=== PATIENT | female | born 1960 | race Caucasian/White ===

== ENCOUNTER 2017-11-21 18:14 | Inpatient (IN) | payer SELFPAY ==
[2017-11-21] MEDS ORDERED: METHYLPREDNISOLONE 125 MG INJ ONE (18:42)
[2017-11-21] MEDS ORDERED: NA CHLORIDE 0.9% 1,000 ML ONE (18:42)
[2017-11-21] MEDS ORDERED: ACETAMINOPHEN 325 MG TABLET ONE (18:42)
[2017-11-21] MEDS ORDERED: Levofloxacin 750mg IV 750 MG/150 ML BAG IV ONE (18:42)
--- NOTE | 2017-11-21 18:53 | EDPHYS ---
Physician Documentation [facility] Name: Mildred Renner Age: 57 yrs Sex: Female : 1960 Arrival Date: 11/21/2017 Time: 18:16 Bed 5 Private MD: None, None ED Physician Chauncey Galeas HPI: 11/21 18:47 This 57 yrs old Female presents to ER via Ambulatory with complaints of jorje Breathing Difficulty, Cough. 18:47 The patient has shortness of breath at rest, with light activity. Onset: The jorje symptoms/episode began/occurred 3 day(s) ago. Duration: The symptoms are continuous, and are steadily getting worse. The patient's shortness of breath is aggravated by coughing, is alleviated by pursed lip breathing, sitting up, application of supplemental oxygen. Associated signs and symptoms: Pertinent positives: non-productive cough, fever. The patient has experienced similar episodes in the past, several times. Historical: - Allergies: 18:23 PENICILLINS; aj - Home Meds: 18:23 None [Active]; aj - PMHx: 18:23 COPD; Hypertension; Pancreatitis; aj - PSHx: 18:23 Cholecystectomy; aj - Immunization history:: Adult Immunizations up to date. - Social history:: Smoking status: Patient uses tobacco products, smokes one-half pack cigarettes per day. - Ebola Screening: : Patient negative for fever greater than or equal to 101.5 degrees Fahrenheit, and additional compatible Ebola Virus Disease symptoms Patient denies exposure to infectious person Patient denies travel to an Ebola-affected area in the 21 days before illness onset No symptoms or risks identified at this time. - Family history:: not pertinent. ROS: 18:47 Eyes: Negative for injury, pain, redness, and discharge, ENT: Negative for injury, jorje pain, and discharge, Neck: Negative for injury, pain, and swelling, Cardiovascular: Negative for chest pain, palpitations, and edema, Abdomen/GI: Negative for abdominal pain, nausea, vomiting, diarrhea, and constipation, Back: Negative for injury and pain, : Negative for injury, bleeding, discharge, and swelling, MS/Extremity: Negative for injury and deformity, Skin: Negative for injury, rash, and discoloration, Neuro: Negative for headache, weakness, numbness, tingling, and seizure, Psych: Negative for depression, anxiety, suicide ideation, homicidal ideation, and hallucinations, Allergy/Immunology: Negative for hives, rash, and allergies, Endocrine: Negative for neck swelling, polydipsia, polyuria, polyphagia, and marked weight changes, Hematologic/Lymphatic: Negative for swollen nodes, abnormal bleeding, and unusual bruising. 18:47 Constitutional: Positive for chills, fatigue. 18:47 Respiratory: Positive for cough, shortness of breath, wheezing, inspiratory, expiratory. Exam: 18:47 Constitutional: This is a well developed, well nourished patient who is awake, alert, jorje and in no acute distress. Head/Face: Normocephalic, atraumatic. Eyes: Pupils equal round and reactive to light, extra-ocular motions intact. Lids and lashes normal. Conjunctiva and sclera are non-icteric and not injected. Cornea within normal limits. Periorbital areas with no swelling, redness, or edema. ENT: Nares patent. No nasal discharge, no septal abnormalities noted. Tympanic membranes are normal and external auditory canals are clear. Oropharynx with no redness, swelling, or masses, exudates, or evidence of obstruction, uvula midline. Mucous membranes moist. Neck: Trachea midline, no thyromegaly or masses palpated, and no cervical lymphadenopathy. Supple, full range of motion without nuchal rigidity, or vertebral point tenderness. No Meningismus. Chest/axilla: Normal chest wall appearance and motion. Nontender with no deformity. No lesions are appreciated. Abdomen/GI: Soft, non-tender, with normal bowel sounds. No distension or tympany. No guarding or rebound. No evidence of tenderness throughout. Back: No spinal tenderness. No costovertebral tenderness. Full range of motion. Female : Normal external genitalia. Skin: Warm, dry with normal turgor. Normal color with no rashes, no lesions, and no evidence of cellulitis. MS/ Extremity: Pulses equal, no cyanosis. Neurovascular intact. Full, normal range of motion. Neuro: Awake and alert, GCS 15, oriented to person, place, time, and situation. Cranial nerves II-XII grossly intact. Motor strength 5/5 in all extremities. Sensory grossly intact. Cerebellar exam normal. Normal gait. Psych: Awake, alert, with orientation to person, place and time. Behavior, mood, and affect are within normal limits. 18:47 Cardiovascular: Rate: tachycardic, Rhythm: regular, Pulses: Pulses are 4+ in bilateral radial, brachial, femoral, popliteal, posterior tibial and and dorsalis pedis arteries.. Heart sounds: normal, Edema: is not appreciated, JVD: is not appreciated. Vital Signs: 18:23 BP 192 / 118; Pulse 113; Resp 36; Temp 100.4; Pulse Ox 88% on R/A; Weight 58.97 kg; aj Height 5 ft. 5 in. (165.10 cm); 18:49 BP 178 / 110; Pulse 99; Resp 24 S; Pulse Ox 94% on 3 lpm NC; iw 19:14 BP 170 / 89; Pulse 98; Resp 22; Pulse Ox 100% on Nebulizer Mask; tl2 21:16 BP 129 / 67; Pulse 98; Resp 20; Pulse Ox 97% on 2 lpm NC; tl2 18:23 Body Mass Index 21.63 (58.97 kg, 165.10 cm) aj MDM: 18:26 Patient medically screened. [facility] 18:56 Data reviewed: vital signs, nurses notes, lab test result(s), EKG, radiologic studies, [facility] CT scan, plain films. 11/21 18:29 Order name: Basic Metabolic Panel; Complete Time: 20:11 [facility] 11/21 18:29 Order name: CBC with Diff; Complete Time: 20:11 [facility] 11/21 18:29 Order name: Ckmb; Complete Time: 20:11 [facility] 11/21 18:29 Order name: CPK; Complete Time: 20:11 [facility] 11/21 18:29 Order name: LFT's; Complete Time: 20:11 [facility] 11/21 18:29 Order name: Magnesium; Complete Time: 20:11 [facility] 11/21 18:29 Order name: NT PRO-BNP; Complete Time: 20:11 [facility] 11/21 18:29 Order name: PT-INR; Complete Time: 20:11 [facility] 11/21 18:29 Order name: Ptt, Activated; Complete Time: 20:11 [facility] 11/21 18:29 Order name: Troponin (emerg Dept Use Only); Complete Time: 20:11 [facility] 11/21 18:29 Order name: Blood Culture Adult (2) [facility] 11/21 18:29 Order name: Lipase; Complete Time: 20:11 [facility] 11/21 18:49 Order name: Flu; Complete Time: 20:11 jorje 11/21 20:29 Order name: Urine Dipstick--Ancillary (enter results) ms 11/21 18:27 Order name: CXR XRAY; Complete Time: 20:11 bd 11/21 18:29 Order name: EKG; Complete Time: 18:30 [facility] 11/21 18:29 Order name: Cardiac monitoring; Complete Time: 19:04 jorje 11/21 18:29 Order name: CT Chest For PE Angio [facility] 11/21 20:38 Order name: Urine Dipstick-Ancillary EDFL 11/21 21:14 Order name: CT EDFL 11/21 18:29 Order name: EKG - Nurse/Tech; Complete Time: 19:04 [facility] 11/21 18:29 Order name: IV Saline Lock; Complete Time: 19:04 [facility] 11/21 18:29 Order name: Labs collected and sent; Complete Time: 19:04 [facility] 11/21 18:29 Order name: O2 Per Protocol; Complete Time: 19:04 [facility] 11/21 18:29 Order name: O2 Sat Monitoring; Complete Time: 19:04 [facility] 11/21 18:29 Order name: Urine Dipstick-Ancillary (obtain specimen); Complete Time: 19:41 [facility] Administered Medications: 18:40 Drug: NS 0.9% 1000 ml Route: IV; Rate: 1 bolus; Site: right antecubital; 7 22:31 Follow up: IV Status: Completed infusion; IV Intake: 1000ml tl2 18:42 Drug: SOLU-Medrol 125 mg Route: IVP; Site: right antecubital; 7 22:31 Follow up: Response: No adverse reaction; Marked relief of symptoms tl2 18:45 Drug: levofloxacin 750 mg Volume: 150 ml; Route: IVPB; Infused Over: 90 mins; Site: [facility] right antecubital; 22:30 Follow up: IV Status: Completed infusion tl2 18:55 Drug: Albuterol - atroVENT (3:1) (2.5 mg - 0.5 mg) 3 ml Route: Nebulizer; 7 20:00 Follow up: Response: No adverse reaction; Marked relief of symptoms tl2 18:58 Drug: Zofran 4 mg Route: IVP; Site: right antecubital; 7 22:29 Follow up: Response: No adverse reaction; Nausea is decreased tl2 19:00 Drug: morphine 4 mg Route: IVP; Site: right antecubital; jl7 19:30 Follow up: Response: No adverse reaction; Pain is decreased tl2 19:03 Drug: Tylenol 650 mg Route: PO; jl7 22:31 Follow up: Response: No adverse reaction tl2 19:08 Drug: Pepcid 20 mg Route: IVP; Site: right antecubital; tl2 22:28 Follow up: Response: No adverse reaction tl2 21:20 Drug: Potassium Chloride 20 mEq Route: PO; tl2 22:28 Follow up: Response: No adverse reaction tl2 21:21 Drug: Magnesium Sulfate 1 grams Route: IVPB; Infused Over: 1 hrs; Site: right tl2 antecubital; 22:28 Follow up: IV Status: Completed infusion tl2 Disposition: 11/21/17 18:53 Hospitalization ordered by Aaliyah Ferguson for Inpatient Admission. Preliminary diagnosis are Chronic obstructive pulmonary disease with (acute) exacerbation, Pneumonia due to other specified bacteria, Fever, unspecified, Hypoxemia, Tobacco use, Tobacco abuse counseling. - Bed requested for Telemetry/MedSurg (Inpatient). - Status is Inpatient Admission. tl2 - Condition is Fair. - Problem is new. - Symptoms have improved. UTI on Admission? No Signatures: Dispatcher [employer] EDLeslie Farah RN RN aj Anderson, Corey, MD MD cha Solis, Maria ms Roszak, Josh, PA PA [id number] Elizabeth Zaragoza RN RN tl2 Montana Stark RN RN jl7 Corrections: (The following items were deleted from the chart) 19:00 18:53 Hospitalization Ordered by Reed Oates MD for Inpatient Admission. [facility] Preliminary diagnosis is Chronic obstructive pulmonary disease with (acute) exacerbation; Pneumonia due to other specified bacteria; Fever, unspecified; Hypoxemia. Bed requested for Telemetry/MedSurg (Inpatient). Status is Inpatient Admission. Condition is Fair. Problem is new. Symptoms have improved. UTI on Admission? No. jorje 19:36 19:00 11/21/2017 18:53 Hospitalization Ordered by Reed Oates MD for Inpatient [facility] Admission. Preliminary diagnosis is Chronic obstructive pulmonary disease with (acute) exacerbation; Pneumonia due to other specified bacteria; Fever, unspecified; Hypoxemia; Tobacco use; Tobacco abuse counseling. Bed requested for Telemetry/MedSurg (Inpatient). Status is Inpatient Admission. Condition is Fair. Problem is new. Symptoms have improved. UTI on Admission? No. jorje 20:26 19:36 11/21/2017 18:53 Hospitalization Ordered by Aaliyah Ferguson MD for Inpatient ms Admission. Preliminary diagnosis is Chronic obstructive pulmonary disease with (acute) exacerbation; Pneumonia due to other specified bacteria; Fever, unspecified; Hypoxemia; Tobacco use; Tobacco abuse counseling. Bed requested for Telemetry/MedSurg (Inpatient). Status is Inpatient Admission. Condition is Fair. Problem is new. Symptoms have improved. UTI on Admission? No. jorje 22:32 20:26 11/21/2017 18:53 Hospitalization Ordered by Aaliyah Ferguson MD for Inpatient tl2 Admission. Preliminary diagnosis is Chronic obstructive pulmonary disease with (acute) exacerbation; Pneumonia due to other specified bacteria; Fever, unspecified; Hypoxemia; Tobacco use; Tobacco abuse counseling. Bed requested for Telemetry/MedSurg (Inpatient). Status is Inpatient Admission. Condition is Fair. Problem is new. Symptoms have improved. UTI on Admission? No. ms
--- NOTE | 2017-11-21 18:53 | ER ---
Nurse's Notes [facility] Name: Mildred Renner Age: 57 yrs Sex: Female : 1960 Arrival Date: 11/21/2017 Time: 18:16 Bed 5 Private MD: None, None Diagnosis: Chronic obstructive pulmonary disease with (acute) exacerbation;Pneumonia due to other specified bacteria;Fever, unspecified;Hypoxemia;Tobacco use;Tobacco abuse counseling Presentation: 11/21 18:22 Presenting complaint: Patient states: Difficulty breathing and stabbing pain to aj posterior left chest. Transition of care: patient was not received from another setting of care. Onset of symptoms was November 19, 2017. Risk Assessment: Do you want to hurt yourself or someone else? Patient reports no desire to harm self or others. Initial Sepsis Screen: Does the patient meet any 2 criteria? No. Patient's initial sepsis screen is negative. Does the patient have a suspected source of infection? No. Patient's initial sepsis screen is negative. Care prior to arrival: None. 18:22 Method Of Arrival: Ambulatory aj 18:22 Acuity: BRIANNA 3 aj Triage Assessment: 18:23 General: Appears distressed, uncomfortable, Behavior is calm, cooperative, appropriate aj for age. Pain: Complains of pain in left scapular area, left subscapular area, anterior aspect of left upper chest and left breast. Neuro: Level of Consciousness is awake, alert, obeys commands, Oriented to person, place, time, situation, Appropriate for age. Respiratory: Reports shortness of breath at rest on exertion Airway is patent Respiratory effort is labored, Respiratory pattern is symmetrical, tachypnea Onset: The symptoms/episode began/occurred gradually, the patient has moderate shortness of breath. Derm: Skin is intact, is healthy with good turgor, Skin is pink, warm \T\ dry. normal. Historical: - Allergies: 18:23 PENICILLINS; aj - Home Meds: 18:23 None [Active]; aj - PMHx: 18:23 COPD; Hypertension; Pancreatitis; aj - PSHx: 18:23 Cholecystectomy; aj - Immunization history:: Adult Immunizations up to date. - Social history:: Smoking status: Patient uses tobacco products, smokes one-half pack cigarettes per day. - Ebola Screening: : Patient negative for fever greater than or equal to 101.5 degrees Fahrenheit, and additional compatible Ebola Virus Disease symptoms Patient denies exposure to infectious person Patient denies travel to an Ebola-affected area in the 21 days before illness onset No symptoms or risks identified at this time. - Family history:: not pertinent. Screenin:50 Abuse screen: Denies threats or abuse. Denies injuries from another. Nutritional iw screening: No deficits noted. Tuberculosis screening: No symptoms or risk factors identified. Fall Risk IV access (20 points). Assessment: 18:35 General: Appears distressed, Behavior is cooperative. Pain: Complains of pain in jl7 anterior aspect of left upper chest Pain radiates to back Pain currently is 9 out of 10 on a pain scale. Neuro: Level of Consciousness is awake, alert, obeys commands, Oriented to person, place, time, situation. Cardiovascular: Heart tones S1 S2 present Patient's skin is warm and dry. Rhythm is sinus tachycardia. Respiratory: Airway is patent Respiratory effort is even, labored, with retractions, Respiratory pattern is symmetrical, tachypnea Breath sounds with wheezes bilaterally. GI: No signs and/or symptoms were reported involving the gastrointestinal system. : No signs and/or symptoms were reported regarding the genitourinary system. EENT: No signs and/or symptoms were reported regarding the EENT system. Derm: Skin is pink, warm \T\ dry. Musculoskeletal: No signs and/or symptoms reported regarding the musculoskeletal system. 19:14 General: Appears in no apparent distress. uncomfortable, Behavior is cooperative, tl2 appropriate for age, anxious. Pain: Complains of pain in anterior aspect of left upper chest Pain radiates to left subscapular area. Neuro: Level of Consciousness is awake, alert, obeys commands, Oriented to person, place, time, situation. Cardiovascular: Heart tones S1 S2 present Rhythm is sinus rhythm. Respiratory: Airway is patent Respiratory effort is even, labored, Respiratory pattern is symmetrical, tachypnea Breath sounds with wheezes bilaterally. GI: No signs and/or symptoms were reported involving the gastrointestinal system. : No signs and/or symptoms were reported regarding the genitourinary system. Derm: Skin is pink, warm \T\ dry. 21:00 Reassessment: Patient appears in no apparent distress at this time. Patient and/or tl2 family updated on plan of care and expected duration. Pain level reassessed. Patient is alert, oriented x 3, equal unlabored respirations, skin warm/dry/pink. 22:10 Reassessment: Patient appears in no apparent distress at this time. Patient and/or tl2 family updated on plan of care and expected duration. Pain level reassessed. Patient is alert, oriented x 3, equal unlabored respirations, skin warm/dry/pink. Pt stable for transport to floor. Vital Signs: 18:23 BP 192 / 118; Pulse 113; Resp 36; Temp 100.4; Pulse Ox 88% on R/A; Weight 58.97 kg; aj Height 5 ft. 5 in. (165.10 cm); 18:49 BP 178 / 110; Pulse 99; Resp 24 S; Pulse Ox 94% on 3 lpm NC; iw 19:14 BP 170 / 89; Pulse 98; Resp 22; Pulse Ox 100% on Nebulizer Mask; tl2 21:16 BP 129 / 67; Pulse 98; Resp 20; Pulse Ox 97% on 2 lpm NC; tl2 18:23 Body Mass Index 21.63 (58.97 kg, 165.10 cm) aj ED Course: 18:16 Patient arrived in ED. mr 18:16 None, None is Private Physician. mr 18:23 Triage completed. aj 18:23 Arm band placed on right wrist. Patient placed in an exam room. aj 18:26 Chauncey Galeas MD is Attending Physician. [facility] 18:31 Montana Stark RN is Primary Nurse. jl7 18:35 Patient has correct armband on for positive identification. Placed in gown. Bed in low jl7 position. Call light in reach. Side rails up X 1. telemetry monitor on. Pulse ox on. NIBP on. 18:35 Initial lab(s) drawn, by pa, sent to lab. First set of blood cultures drawn. Inserted iw saline lock: 20 gauge in right antecubital area, using aseptic technique. Blood collected. 18:41 EKG done, by ED staff, reviewed by Chauncey Galeas MD. jb1 18:48 CXR XRAY In Process Unspecified. EDMS 18:52 Reed Oates MD is Hospitalizing Provider. jorje 19:06 Report given to JD Johnson. jl7 19:07 Primary Nurse role handed off by Montana Stark RN jl7 19:36 Aaliyah Ferguson MD is Hospitalizing Provider. jorje 20:51 CT completed. Patient tolerated procedure well. Patient moved back from CT. cw1 20:54 Radiology exam delayed due to ct order never printed. cw1 22:10 No provider procedures requiring assistance completed. Patient admitted, IV remains in tl2 place. 22:26 Elizabeth Zaragoza RN is Primary Nurse. tl2 Administered Medications: 18:40 Drug: NS 0.9% 1000 ml Route: IV; Rate: 1 bolus; Site: right antecubital; jl7 22:31 Follow up: IV Status: Completed infusion; IV Intake: 1000ml tl2 18:42 Drug: SOLU-Medrol 125 mg Route: IVP; Site: right antecubital; jl7 22:31 Follow up: Response: No adverse reaction; Marked relief of symptoms tl2 18:45 Drug: levofloxacin 750 mg Volume: 150 ml; Route: IVPB; Infused Over: 90 mins; Site: jl7 right antecubital; 22:30 Follow up: IV Status: Completed infusion tl2 18:55 Drug: Albuterol - atroVENT (3:1) (2.5 mg - 0.5 mg) 3 ml Route: Nebulizer; jl7 20:00 Follow up: Response: No adverse reaction; Marked relief of symptoms tl2 18:58 Drug: Zofran 4 mg Route: IVP; Site: right antecubital; jl7 22:29 Follow up: Response: No adverse reaction; Nausea is decreased tl2 19:00 Drug: morphine 4 mg Route: IVP; Site: right antecubital; jl7 19:30 Follow up: Response: No adverse reaction; Pain is decreased tl2 19:03 Drug: Tylenol 650 mg Route: PO; jl7 22:31 Follow up: Response: No adverse reaction tl2 19:08 Drug: Pepcid 20 mg Route: IVP; Site: right antecubital; tl2 22:28 Follow up: Response: No adverse reaction tl2 21:20 Drug: Potassium Chloride 20 mEq Route: PO; tl2 22:28 Follow up: Response: No adverse reaction tl2 21:21 Drug: Magnesium Sulfate 1 grams Route: IVPB; Infused Over: 1 hrs; Site: right tl2 antecubital; 22:28 Follow up: IV Status: Completed infusion tl2 Intake: 22:31 IV: 1000ml; Total: 1000ml. tl2 Outcome: 18:53 Decision to Hospitalize by Provider. jorje 22:10 Admitted to Med/surg accompanied by tech, via wheelchair, room 229, with oxygen, with tl2 chart, Report called to JD Regan 22:10 Condition: stable 22:10 Discharge instructions given to patient, Instructed on the need for admit. 22:32 Patient left the ED. tl2 Signatures: Dispatcher [employer] EDHerminio Bains jbLeslie Torres, RN Chauncey Guzman MD MD cha Rivera, Maria mr Sara Godinez, RN JD David, Vanessa cw1 Elizabeth Zaragoza RN RN tl2 Montana Stark RN RN jl7
[2017-11-21] MEDS ORDERED: IPRATROPIUM BROM 0.5MG/2.5ML ONE (18:55)
[2017-11-21] MEDS ORDERED: ALBUTEROL 2.5 MG/3 ML NEB SOL ONE (18:55)
[2017-11-21] MEDS ORDERED: MORPHINE 4 MG/ML SYR ONE (18:56)
[2017-11-21] MEDS ORDERED: ONDANSETRON 4 MG/2 ML VIAL ONE (18:56)
[2017-11-21] MEDS ORDERED: FAMOTIDINE 20 MG/2 ML VIAL IV ONE (19:09)
--- NOTE | 2017-11-21 19:38 | RAD REPORT ---
EXAM DESCRIPTION: RAD - Chest Single View - 11/21/2017 6:49 pm CLINICAL HISTORY: Shortness of breath COMPARISON: June 2015 TECHNIQUE: AP portable chest image was obtained 1827 hours . FINDINGS: Patient has baseline interstitial fibrotic pattern. Interstitial and alveolar opacificatio n in the right lung base is present. No failure or volume overload. Heart and vasculature are normal. No measurable pleural effusion and no pneumothorax. No gross bony abnormality seen. No acute aortic findings suspected. IMPRESSION: Mild right lung base pneumonia.
[2017-11-21 19:45] LABS: Absolute Lymphocytes (CBC) 1.3 K/uL (0.7-4.9); Absolute Neutrophil 13.1 K/uL (1.8-8.0); Basophils % 0.4 % (0-1.3); Eosinophils % 0.1 % (0-4.4); Hematocrit 39.3 % (36.0-45.0); Lymphocytes % 8.3 % (15.3-44.8); MCH 28.2 pg (27.0-35.0); MCV 85.9 fL (80-100); MPV 7.9 fL (7.6-11.3); Monocytes % 6.3 % (3.3-12.3); RBC Red Blood Cell Count 4.58 M/uL (3.86-4.86)
[2017-11-21 19:52] LABS: Protime INR 1.15
[2017-11-21 20:01] LABS: ALT/SGPT 15 U/L (12-78); AST/SGOT 15 U/L (15-37); Albumin 3.1 g/dL (3.4-5.0); Alkaline Phosphatase 88 U/L (45-117); BUN Blood Urea Nitrogen 8 mg/dL (7-18); Bicarbonate 26 mmol/L (21-32); Bilirubin Direct 0.2 mg/dL (0-0.2); Bilirubin Total 0.6 mg/dL (0.2-1.0); CKMB Creatine Kinase MB < 1.0 ng/mL (0.3-3.6); Creatine Phosphokinase 44 U/L (26-192); Glucose Level 173 mg/dL (74-106); Lipase 166 U/L (73-393); Magnesium 1.7 mg/dL (1.8-2.4); NT PRO-BNP 403 pg/mL (<125); Potassium 3.3 mmol/L (3.5-5.1); Sodium Level 138 mmol/L (136-145)
[2017-11-21] MEDS ORDERED: ACETAMINOPHEN 500 MG TAB PO PRN (20:17)
[2017-11-21] MEDS ORDERED: ONDANSETRON 4 MG/2 ML VIAL IV PRN (20:17)
[2017-11-21] MEDS ORDERED: CEFTRIAXONE 1 GM/NS 50 ML 1 GM/50 ML BAG IV SCH (20:17)
[2017-11-21 20:38] LABS: Urine Blood 1+ (NEG); Urine Glucose NEGATIVE (NEG); Urine Protein 1+ (NEG); Urine Specific Gravity 1.025 (1.005-1.030)
[2017-11-21] MEDS: LIPASE PO SCH (21:00)
[2017-11-21] MEDS: [UNRECOGNIZED DRUG - OTHER] PO SCH (21:00)
[2017-11-21] MEDS: PROTEASE PO SCH (21:00)
[2017-11-21] MEDS: PANCREATIN PO SCH (21:00)
[2017-11-21] MEDS ORDERED: NA CHLORIDE 0.9% 1,000 ML IV SCH (21:00)
[2017-11-21] MEDS: CODEINE 30MG/APAP 300MG TAB PO PRN (21:13)
[2017-11-21] MEDS ORDERED: CODEINE 30MG/APAP 300MG TAB ONE (21:13)
--- NOTE | 2017-11-21 21:13 | RAD REPORT ---
EXAM DESCRIPTION: CT - Chest For Pe Angio - 11/21/2017 8:51 pm CLINICAL HISTORY: Chest pain, shortness of breath COMPARISON: Chest films same date, CT chest 2013 TECHNIQUE: Dynamically enhanced 3 mm thick images of the chest were obtained during administration o f approximately 150mL Isovue 370 IV contrast. Coronal and oblique MIP reconstruction images were gene rated and reviewed. Exam utilizes a protocol to evaluate the pulmonary arterial tree. All CT scans are performed using dose optimization technique as appropriate and may include automated exposure control or mA/KV adjustment according to patient size. FINDINGS: No pulmonary emboli are identified. The aorta as imaged shows no acute or suspicious finding. No pericardial thickening or effusion. Interstitial and alveolar opacification is present at the right lung base. This matches the chest alana m finding is most likely a right lung base pneumonia. Right infrahilar 12 mm and 11 mm lymph nodes ar e present. An additional right hilar lymph nodes present 14 mm. In the posterior lower left lung fiel d (image 62/94) there is a 2.2 x 1.5 centimeter noncalcified mass. Margins are spiculated. No pleural effusion or pleural thickening. A 3.2 x 2.2 centimeter noncalcified subcarinal mass is present. No chest wall masses or abnormal axil carl lymphadenopathy. Partially imaged liver shows multiple low-attenuation masses probably cysts similar to comparison. Li gris is not fully assessed. IMPRESSION: No pulmonary emboli identified. Left lower lobe 2.2 x 1.5 centimeter mass with irregular margins. This is new from 2013. Malignancy i s the diagnosis of exclusion. A 3.2 x 2.2 centimeter subcarinal mass could be neoplastic or possibly reactive lymphadenopathy. Right hilar lymph nodes possibly reactive from the right lung base pneumonia. Small right lung base pneumonia.
[2017-11-21] MEDS ORDERED: POTASSIUM CL SA 10 MEQ TAB PO ONE (21:17)
[2017-11-21] MEDS ORDERED: MAGNESIUM SULFATE 1 gm IVPB 1 GM/100 ML BAG IV ONE (21:18)
[2017-11-21] MEDS ORDERED: CEFTRIAXONE 1000 MG/VIAL IVP SCH (23:00)
[2017-11-21] MEDS: METOPROLOL TAR 25 MG TAB PO SCH (23:21)
[2017-11-21] MEDS: METHYLPREDNISOLONE 125 MG INJ IV SCH (23:24)
[2017-11-21] MEDS ORDERED: NA CHLORIDE 0.9% 50 ML ONE (23:37)
[2017-11-21] MEDS ORDERED: HYDROCODONE/APAP 10/325 TAB PO ONE (23:55)
[2017-11-22] MEDS: ALBUTEROL 2.5 MG/3 ML NEB SOL NEB SCH ×4 (01:18→20:56)
[2017-11-22] MEDS: IPRATROPIUM BROM 0.5MG/2.5ML NEB SCH ×4 (01:18→20:56)
[2017-11-22 03:16] LABS: Urine Appearance CLEAR; Urine Bilirubin NEGATIVE (NEG); Urine Blood 1+ (NEG); Urine Color YELLOW; Urine Glucose 1+ (NEG); Urine Protein NEGATIVE (NEG); Urine Specific Gravity >=1.030 (1.005-1.030); Urine Urobilinogen 0.2 mg/dL (0.2-1.0); Urine pH 5.5 (5.0-7.0)
[2017-11-22 03:17] LABS: Urine Microscopic Reflex ORDER UMIC
[2017-11-22 03:26] LABS: Urine Bacteria <20 /HPF (<20); Urine Culture Reflex Order NOT NEEDED; Urine RBC <5 /HPF (NONE SEEN)
[2017-11-22 05:15] LABS: Absolute Lymphocytes (CBC) 0.7 K/uL (0.7-4.9); Absolute Monocytes 0.1 K/uL (0.1-1.3); Basophils % 0.1 % (0-1.3); Hematocrit 37.3 % (36.0-45.0); Lymphocytes % 6.5 % (15.3-44.8); MCH 29.4 pg (27.0-35.0); MCV 86.1 fL (80-100); MPV 8.2 fL (7.6-11.3); Monocytes % 1.1 % (3.3-12.3); RBC Red Blood Cell Count 4.33 M/uL (3.86-4.86)
[2017-11-22] MEDS: CODEINE 30MG/APAP 300MG TAB PO PRN (05:21)
[2017-11-22] MEDS: METHYLPREDNISOLONE 125 MG INJ IV SCH (05:21)
[2017-11-22 05:29] LABS: Bilirubin Total 0.3 mg/dL (0.2-1.0); Magnesium 2.1 mg/dL (1.8-2.4); Potassium 4.2 mmol/L (3.5-5.1)
[2017-11-22 06:20] LABS: Blood Morphology Comment NOTED (NOT SEEN); Ovalocytes 1+; Platelet Estimate ADEQ
[2017-11-22] MEDS ORDERED: POTASSIUM PHOS IN 0.9 % NACL 15 MMOL/250 ML BAG IV ONE (07:00)
--- NOTE | 2017-11-22 07:50 | EKG ---
Test Date: 2017-11-21 Test Time: 18:37:50 Art Dealer: MADHU MEASUREMENT RESULTS: Intervals: Rate: 107 UT: 120 QRSD: 88 QT: 362 QTc: 483 [place]: P: 82 UT: 120 QRS: 65 T: 40 INTERPRETIVE STATEMENTS: Sinus tachycardia Otherwise normal ECG Compared to ECG 11/25/2015 23:29:08 Sinus rhythm no longer present Electronically Signed On 11-22-17 07:49:51 CDT by Gen Gavin
--- NOTE | 2017-11-22 08:29 | P.HP ---
Certification for Inpatient Patient admitted to: Inpatient With expected LOS: >2 Midnights Patient will require the following post-hospital care: None Practitioner: I am a practitioner with admitting privileges, knowledge of patient current condition, hospital course, and medical plan of care. Services: Services provided to patient in accordance with Admission requirements found in Title 42 Section 412.3 of the Code of Federal Regulations Patient History Date of Service: 11/21/17 Reason for admission: COPD exacerbation History of Present Illness: . Patient is a 57-year-old female who came in with difficulty breathing. Patient has been short of breath for the last 24 hr and she was getting worse. She was not improving with her medications at home so she came into the emergency room. She was given nebs, steroids, and antibiotics. Clinically she feels much better. Patient has a longstanding history of COPD secondary to tobacco use. She does not have a primary care provider so isn't able to follow up to get her medications regularly. She has not had a pulmonary function test performed. Last echocardiogram was many years ago. On physical exam she did have some jugular venous distension someone to get an echocardiogram to further evaluate this. She could have a component of heart failure as well. Patient will be admitted to the hospital for further care if further workup for her COPD and/orcongestive heart failure. I took care of patient about a year and a half ago and at that time she had acute pancreatitis. She states she has been doing well from that standpoint. It is just her breathing that got her really sick this time. She will be admitted and treated and we may get a pulmonary consultation as well. Allergies Penicillins Allergy (Severe, Verified 11/21/17 22:40) Anaphylaxis Home Medications: NK [No Home Meds] 11/21/17 - Past Medical/Surgical History Has patient received pneumonia vaccine in the past: Yes Diabetic: No -: chronic pancreatitis -: Herniated discs -: hypertension -: COPD -: Cholescystectomy - Family History Father Family History: Reviewed- Non-Contributory - Social History Smoking Status: Current every day smoker Alcohol use: No CD- Drugs: No Caffeine use: Yes Place of Residence: Home Review of Systems 10-point ROS is otherwise unremarkable Physical Examination - Vital Signs Temperature: 97.3 F Blood Pressure: 119/61 Pulse: 62 Respirations: 18 Pulse Ox (%): 96 - Physical Exam General: Alert, In no apparent distress, Oriented x3 HEENT: Atraumatic, PERRLA, Mucous membr. moist/pink, EOMI, Sclerae nonicteric Neck: Supple, 2+ carotid pulse no bruit, No LAD, Without JVD or thyroid abnormality Respiratory: Diminished, Expiratory wheezes Cardiovascular: Regular rate/rhythm, Normal S1 S2, No murmurs Gastrointestinal: Normal bowel sounds, Soft and benign, Non-distended, No tenderness, No rebound, No guarding Musculoskeletal: No tenderness Integumentary: No rashes Neurological: Normal gait, Normal speech, Normal strength at 5/5 x4 extr, Normal tone, Sensation intact, Cranial nerves 3-12 intact, Normal affect Lymphatics: No axilla or inguinal lymphadenopathy Assessment & Plan - Problems (Diagnosis) (1) COPD with acute exacerbation Current Visit: Yes Status: Acute (2) Shortness of breath Current Visit: Yes Status: Acute (3) Jugular venous distension Current Visit: Yes Status: Acute (4) Hypertension Onset Date: 06/10/15 Current Visit: No Status: Acute (5) Lung mass Current Visit: Yes Status: Acute (6) Pneumonia involving right lung Current Visit: Yes Status: Acute - Plan Plan: -nebs, steroids, and antibiotics -O2 per protocol. -Echocardiogram along with diuretics -outpatient pulmonary function testing -repeat chest x-ray -pulmonary consultation -bronchoscopy evaluation-inpt vs outpt Discharge Plan: Home Plan to discharge in: Greater than 2 days - Advance Directives Does patient have a Living Will: No Does patient have a Durable POA for Healthcare: No - Code Status/Comfort Care Code Status Assessed: Yes Code Status: Full Code Critical Care: No Time Spent Managing PTS Care (In Minutes): 50
[2017-11-22] MEDS ORDERED: AZITHROMYCIN IV 500 MG in NA CHLORIDE 0.9% 250 ML IVPB SCH (09:00)
[2017-11-22] MEDS: LIPASE PO SCH ×3 (09:00→21:00)
[2017-11-22] MEDS: [UNRECOGNIZED DRUG - OTHER] PO SCH ×3 (09:00→21:00)
[2017-11-22] MEDS: PROTEASE PO SCH ×3 (09:00→21:00)
[2017-11-22] MEDS: PANCREATIN PO SCH ×3 (09:00→21:00)
[2017-11-22] MEDS: ENOXAPARIN 40 MG/0.4 ML SQ SCH (10:16)
[2017-11-22] MEDS: METOPROLOL TAR 25 MG TAB PO SCH ×2 (10:16→21:12)
[2017-11-22] MEDS: HYDROCODONE/APAP 7.5/325 MG TAB PO PRN ×3 (10:21→22:14)
[2017-11-22] MEDS: NICOTINE 21 MG/PAT TD SCH (11:14)
--- NOTE | 2017-11-22 12:12 | P.CNS ---
Date of Consult: 11/22/17 Chief Complaint: COPD exacerbation History of Present Illness: Patient is 57 years of age admitted with shortness of breath and possible lung mass she became short of breath over the weekend started on Wednesday worsening dyspnea with cough congestion and some chest discomfort patient is a heavy smoker as not use any bronchodilators at home still complaining of shortness of breath was incidentally found to have a lung mass with possible mediastinal adenopathy Allergies Penicillins Allergy (Severe, Verified 11/21/17 22:40) Anaphylaxis Home Medications: NK [No Home Meds] 11/21/17 - Past Medical/Surgical History Diabetic: No -: copd -: chronic pancreatitis -: Herniated discs -: hypertension -: COPD -: Cholescystectomy - Family History Father Family History: Reviewed- Non-Contributory - Social History Smoking Status: Current every day smoker Alcohol use: No CD- Drugs: No Caffeine use: Yes Place of Residence: Home Review of Systems 10-point ROS is otherwise unremarkable General: Weakness Respiratory: Cough, Shortness of Breath Cardiovascular: Chest Pain Physical Examination Temp Pulse Resp BP Pulse Ox 97.3 F 62 18 119/61 96 11/22/17 08:30 11/22/17 10:16 11/22/17 08:30 11/22/17 10:16 11/22/17 08:30 General: Alert, Oriented x3 HEENT: Atraumatic Neck: Supple Respiratory: Diminished, Expiratory wheezes Cardiovascular: No edema, Regular rate/rhythm Gastrointestinal: Normal bowel sounds, Hypoactive, Soft and benign - Problems (1) COPD with acute exacerbation Onset Date: 11/22/17 Current Visit: Yes Status: Acute Plan: Patient is 57 years of age with a history of COPD heavy smoker admitted with an exacerbation continue with bronchodilator therapy CT scan reviewed abnormal/she can probably be discharged home on here Airduo, prednisone and antibiotic Patient is been console not to smoke he probably benefit from Wellbutrin (2) Lung mass Onset Date: 11/22/17 Current Visit: Yes Status: Acute Plan: Patient's CT scan is abnormal she does have a left lower lobe lung mass possible mediastinal adenopathy possible lymphadenopathy on the right side with possible right lower lobe pneumonia labs reviewed white count is declined change to p.o. antibiotics I have discussed with the patient she will need a repeat CT scan in about a month possible PET scan high risk for lung cancer in the left lower lobe mass is probably and amenable to FNA I have discussed with the patient in the presence of her daughter she needs to follow with me patient is trying to get some insurance currently uninsured
--- NOTE | 2017-11-22 13:48 | ECHO ---
HEIGHT: 5 ft 5 in WEIGHT: 136 lb 14.4 oz DATE OF STUDY: 11/22/[address]: Aaliyah Ferguson MD 2-DIMENSIONAL: YES M.MODE: YES DOPPLER: YES COLOR FLOW: YES TDS: NO PORTABLE: NO DEFINITY: NO BUBBLE STUDY: NO DIAGNOSIS: CONGESTIVE HEART FAILURE CARDIAC HISTORY: CATHERIZATION: NO SURGERY: NO PROSTHETIC VALVE: NO PACEMAKER: NO MEASUREMENTS (cm) DIASTOLIC (NORMALS) SYSTOLIC (NORMALS) IVSd 1.0 (0.6-1.2) LA Diam 3.7 (1.9-4.0) LVEF 65% LVIDd 5.0 (3.5-5.7) LVIDs 3.2 (2.0-3.5) %FS 36% LVPWd 1.0 (0.6-1.2) Ao Diam 3.1 (2.0-3.7) 2 DIMENSIONAL ASSESSMENT: RIGHT ATRIUM: NORMAL LEFT ATRIUM: NORMAL RIGHT VENTRICLE: NORMAL LEFT VENTRICLE: NORMAL TRICUSPID VALVE: NORMAL MITRAL VALVE: NORMAL PULMONIC VALVE: NORMAL AORTIC VALVE: NORMAL PERICARDIAL EFFUSION: NONE AORTIC ROOT: NORMAL LEFT VENTRICULAR WALL MOTION: DOPPLER/COLOR FLOW: PHYSIOLOGIC TRICUSPID REGURGITATION. NORMAL RIGHT VENTRICULAR SYSTOLIC PRESSURE. COMMENTS: NORMAL 2D ECHO WITH DOPPLER. TECHNOLOGIST: KATHERINE NOLAN
[2017-11-22] MEDS ORDERED: METHYLPREDNISOLONE 125 MG INJ IV SCH (14:00)
--- NOTE | 2017-11-22 17:25 | P.PN ---
Subjective Date of Service: 11/22/17 Chief Complaint: COPD exacerbation Subjective: Other (Patient improving) Physical Examination - Vital Signs Temperature: 98.3 F Blood Pressure: 142/67 Pulse: 61 Respirations: 18 Pulse Ox (%): 92 - Physical Exam General: Alert, In no apparent distress, Oriented x3, Cooperative HEENT: Atraumatic Neck: Supple Respiratory: Expiratory wheezes (Bilateral) Cardiovascular: Normal pulses, Regular rate/rhythm Gastrointestinal: Normal bowel sounds, Soft and benign, Non-distended, No tenderness, No masses, No rebound, No guarding Musculoskeletal: No tenderness, No warmth Integumentary: No erythema, No warmth, No cyanosis Neurological: Normal speech, Normal strength at 5/5 x4 extr, Normal tone - Studies Medications List Reviewed: Yes Assessment & Plan - Problems (Diagnosis) (1) COPD with acute exacerbation Onset Date: 11/22/17 Current Visit: Yes Status: Acute Plan: Continue COPD exacerbation. Patient with lung mass. Pulmonology recommends that the patient be further evaluated as an outpatient for this. Patient may require CT-guided biopsy versus bronchoscopy. Will discuss with pulmonology. (2) Lung mass Onset Date: 11/22/17 Current Visit: Yes Status: Acute Plan: CT scan reviewed.Will discuss further with pulmonology. Will discuss with pulmonology about options of care. (3) Shortness of breath Onset Date: 11/22/17 Current Visit: Yes Status: Acute Plan: Continue COPD treatment. Patient also with pneumonia. Continue antibiotic therapy. (4) Hypertension Onset Date: 06/10/15 Current Visit: No Status: Chronic Plan: Continue with medication. Qualifiers: Hypertension type: essential hypertension Qualified Code(s): I10 - Essential (primary) hypertension (5) Pneumonia Current Visit: Yes Status: Acute Plan: Right lower lobe pneumonia. Continue with antibiotic therapy. Continue as above. Will discuss with pulmonology. Qualifiers: Pneumonia type: due to unspecified organism Laterality: right Lung location: lower lobe of lung Qualified Code(s): J18.1 - Lobar pneumonia, unspecified organism (6) Pancreatitis Current Visit: Yes Status: Chronic Plan: Continue with medication Qualifiers: Chronicity: chronic Pancreatitis type: unspecified pancreatitis type Qualified Code(s): K86.1 - Other chronic pancreatitis Discharge Plan: Home Plan to discharge in: 24 Hours Time Spent Managing Pts Care (In Minutes): 55
[2017-11-22] MEDS ORDERED: ALPRAZOLAM 0.5 MG TABLET PO PRN (19:41)
[2017-11-22] MEDS: TRAMADOL HCL 50 MG TAB PO PRN (19:43)
[2017-11-22] MEDS ORDERED: CEFTRIAXONE/SWI 1gm 1 GM/10 ML SYR IV SCH (21:00)
[2017-11-22] MEDS: predniSONE 20 MG TAB PO SCH (21:13)
[2017-11-23] MEDS: IPRATROPIUM BROM 0.5MG/2.5ML NEB SCH ×3 (03:16→13:33)
[2017-11-23] MEDS: ALBUTEROL 2.5 MG/3 ML NEB SOL NEB SCH ×3 (03:16→13:33)
[2017-11-23] MEDS: HYDROCODONE/APAP 7.5/325 MG TAB PO PRN ×2 (04:21→12:21)
[2017-11-23 05:42] LABS: Absolute Lymphocytes (CBC) 1.3 K/uL (0.7-4.9); Absolute Monocytes 0.6 K/uL (0.1-1.3); Absolute Neutrophil 14.5 K/uL (1.8-8.0); Basophils % 0.3 % (0-1.3); Hematocrit 37.4 % (36.0-45.0); Lymphocytes % 7.6 % (15.3-44.8); MCH 28.9 pg (27.0-35.0); MCV 85.8 fL (80-100); MPV 8.3 fL (7.6-11.3); Monocytes % 3.9 % (3.3-12.3); RBC Red Blood Cell Count 4.36 M/uL (3.86-4.86)
[2017-11-23 05:57] LABS: Magnesium 2.3 mg/dL (1.8-2.4); Phosphorus 2.8 mg/dL (2.5-4.9); Potassium 4.3 mmol/L (3.5-5.1)
[2017-11-23 06:22] VITALS: BMI 22.7
[2017-11-23] MEDS: DULERA 200/5 (MOMETASONE/FORMOTEROL) INHALER IH SCH ×2 (06:34→09:00)
[2017-11-23] MEDS: TRAMADOL HCL 50 MG TAB PO PRN (06:38)
[2017-11-23] MEDS: LIPASE PO SCH ×2 (07:57→14:00)
[2017-11-23] MEDS: PANCREATIN PO SCH ×2 (07:57→14:00)
[2017-11-23] MEDS: [UNRECOGNIZED DRUG - OTHER] PO SCH ×2 (07:57→14:00)
[2017-11-23] MEDS: PROTEASE PO SCH ×2 (07:57→14:00)
--- NOTE | 2017-11-23 08:44 | RAD REPORT ---
EXAM DESCRIPTION: RAD - Chest Pa And Lat (2 Views) - 11/23/2017 6:53 am CLINICAL HISTORY: Follow up pneumonia, COPD Chest pain. COMPARISON: Chest Single View dated 11/21/2017; CHEST SINGLE VIEW dated 06/08/2015; CHEST SINGLE VIEW d ated 03/13/2013; CHEST SINGLE VIEW dated 03/09/2013; Chest For Pe Angio dated 11/21/2017 FINDINGS: Prominent COPD is present. Ill-defined right basilar infiltrate again noted, appearing mod erately improved. Trace right pleural fluid is noted. [place] nodular opacity in the left lower lobe a gain seen. The heart is normal in size. No displaced fractures. IMPRESSION: Moderate improvement in right basilar pneumonia since comparative study.
[2017-11-23] MEDS ORDERED: levoFLOXacin 500 MG TAB PO SCH (09:00)
[2017-11-23 09:01] LABS: Blood Morphology Comment NOT SEEN (NOT SEEN); Platelet Estimate ADEQ
[2017-11-23] MEDS: METOPROLOL TAR 25 MG TAB PO SCH (09:12)
[2017-11-23] MEDS: predniSONE 20 MG TAB PO SCH (09:12)
[2017-11-23] MEDS: NICOTINE 21 MG/PAT TD SCH (09:13)
[2017-11-23] MEDS: ENOXAPARIN 40 MG/0.4 ML SQ SCH (09:13)
[2017-11-23 12:00] VITALS: O2SAT 93
[2017-11-23 12:32] VITALS: BP 158/77; TEMP 97.4
--- NOTE | 2017-11-23 13:19 | P.DS ---
Admission Date: 11/21/17 Discharge Date: 11/23/17 Primary Care Provider: none Disposition: ROUTINE DISCHARGE Discharge Condition: GOOD Reason for Admission: COPD exacerbation Consultations: Pulmonary-Dr Oates Procedures: ECHO: EF-56%, otherwisw normal CT chest: COMPARISON: Chest films same date, CT chest 2013 TECHNIQUE: Dynamically enhanced 3 mm thick images of the chest were obtained during administration of approximately 150mL Isovue 370 IV contrast. Coronal and oblique MIP reconstruction images were generated and reviewed. Exam utilizes a protocol to evaluate the pulmonary arterial tree. All CT scans are performed using dose optimization technique as appropriate and may include automated exposure control or mA/KV adjustment according to patient size. FINDINGS: No pulmonary emboli are identified. The aorta as imaged shows no acute or suspicious finding. No pericardial thickening or effusion. Interstitial and alveolar opacification is present at the right lung base. This matches the chest film finding is most likely a right lung base pneumonia. Right infrahilar 12 mm and 11 mm lymph nodes are present. An additional right hilar lymph nodes present 14 mm. In the posterior lower left lung field (image 62/94) there is a 2.2 x 1.5 centimeter noncalcified mass. Margins are spiculated. No pleural effusion or pleural thickening. A 3.2 x 2.2 centimeter noncalcified subcarinal mass is present. No chest wall masses or abnormal axillary lymphadenopathy. Partially imaged liver shows multiple low-attenuation masses probably cysts similar to comparison. Liver is not fully assessed. IMPRESSION: No pulmonary emboli identified. Left lower lobe 2.2 x 1.5 centimeter mass with irregular margins. This is new from 2013. Malignancy is the diagnosis of exclusion. A 3.2 x 2.2 centimeter subcarinal mass could be neoplastic or possibly reactive lymphadenopathy. Right hilar lymph nodes possibly reactive from the right lung base pneumonia. Small right lung base pneumonia. - Problems (1) COPD with acute exacerbation Onset Date: 11/22/17 Current Visit: Yes Status: Acute (2) Lung mass Onset Date: 11/22/17 Current Visit: Yes Status: Acute (3) Shortness of breath Onset Date: 11/22/17 Current Visit: Yes Status: Acute (4) Hypertension Onset Date: 06/10/15 Current Visit: No Status: Chronic Qualifiers: Hypertension type: essential hypertension Qualified Code(s): I10 - Essential (primary) hypertension (5) Pneumonia Current Visit: Yes Status: Acute Qualifiers: Pneumonia type: due to unspecified organism Laterality: right Lung location: lower lobe of lung Qualified Code(s): J18.1 - Lobar pneumonia, unspecified organism (6) Pancreatitis Current Visit: Yes Status: Chronic Qualifiers: Chronicity: chronic Pancreatitis type: unspecified pancreatitis type Qualified Code(s): K86.1 - Other chronic pancreatitis (7) Lymphadenopathy Current Visit: Yes Status: Acute (8) Tobacco abuse Current Visit: Yes Status: Chronic Brief History of Present Illness: 57-year-old female presented emergency room with shortness of breath. Patient with history of COPD. Patient was admitted for evaluation and treatment. Hospital Course: During the course of her stay patient was evaluated for her shortness of breath. Patient found to have COPD exacerbation. CT scan showed no pulmonary embolism. Left lower lobe 2.2 x 1.5 cm mass with irregular margins was new from 2013 radiology comparison. Malignancy is likely. A 3.2 x 2.2 cm sub- carinal mass was also noted. Right hilar lymph nodes were noted with possible right lower lobe pneumonia. The patient was given COPD treatment and treatment for pneumonia. Pulmonology was consulted to further assess. Pulmonology spoke with patient in detail concerning CT abnormalities. Case also discussed with radiology. Due to the location of these masses, recommendation was for the patient to follow up with CV surgery as an outpatient to consider further evaluation and biopsy. This is likely not amenable to CT-guided biopsy due to patient's COPD history. Patient high risk for complication for needle biopsy. Patient has done well with treatment. Room-air saturations and saturations with exertion within normal range at discharge. At discharge she will continue with prednisone 20 mg 1 pill twice daily for 5 days then 1 pill once daily for 5 days. Patient will continue with her COPD medication including Airduo 1 puffs twice daily and Pro air 2 puffs 3 times a day as needed for shortness of breath. Recommendations for the patient follow up with pulmonology as an outpatient to further monitor and address. Patient will need a follow up with CV surgery at a higher level care center to further assess CT abnormalities. Patient has right lower lobe pneumonia. At discharge she will continue with Levaquin 500 mg 1 pill daily for 7 days. Recommendation is to recheck x-ray in 2-4 weeks to monitor resolution. Patient can follow up with pulmonology to further evaluate. Patient has hypertension. She will continue with medication metoprolol 25 mg 1 pill twice daily. Recommendations to maintain blood pressures less 150/80. Further adjustment can be done by her PCP. Patient has chronic pancreatitis. This has remained stable. Patient may continue with Creon as directed. Patient may follow up with GI to further monitor. Tobacco cessation addressed in detail. Vital Signs/Physical Exam: Temp Pulse Resp BP Pulse Ox 97.4 F 67 16 158/77 H 95 11/23/17 12:00 11/23/17 12:00 11/23/17 12:00 11/23/17 12:00 11/23/17 12:00 General: Alert, In no apparent distress, Oriented x3, Cooperative HEENT: Atraumatic Neck: Supple Respiratory: Expiratory wheezes (But improved aeration bilateral) Cardiovascular: Normal pulses, Regular rate/rhythm Gastrointestinal: Normal bowel sounds, Soft and benign, Non-distended, No tenderness, No masses, No rebound, No guarding Musculoskeletal: No erythema, No tenderness, No warmth Integumentary: No tenderness/swelling, No erythema, No warmth, No cyanosis Neurological: Normal speech, Normal strength at 5/5 x4 extr, Normal tone, Normal affect Laboratory Data at Discharge: WBC 16.5 K/uL (4.3-10.9) H D 11/23/17 04:43 Hgb 12.6 g/dL (12.0-15.0) 11/23/17 04:43 Hct 37.4 % (36.0-45.0) 11/23/17 04:43 Plt Count 211 K/uL (152-406) 11/23/17 04:43 PT 13.6 SECONDS (9.5-12.5) H 11/21/17 19:30 INR 1.15 11/21/17 19:30 APTT 31.4 SECONDS (24.3-36.9) 11/21/17 19:30 Sodium 140 mmol/L (136-145) 11/23/17 04:43 Potassium 4.3 mmol/L (3.5-5.1) 11/23/17 04:43 BUN 14 mg/dL (7-18) 11/23/17 04:43 Creatinine 0.80 mg/dL (0.55-1.3) 11/23/17 04:43 Glucose 247 mg/dL (74-106) H 11/23/17 04:43 Phosphorus 2.8 mg/dL (2.5-4.9) 11/23/17 04:43 Magnesium 2.3 mg/dL (1.8-2.4) 11/23/17 04:43 Total Bilirubin 0.3 mg/dL (0.2-1.0) 11/22/17 04:46 AST 14 U/L (15-37) L 11/22/17 04:46 ALT 17 U/L (12-78) 11/22/17 04:46 Alkaline Phosphatase 90 U/L (45-117) 11/22/17 04:46 Lipase 166 U/L (73-393) 11/21/17 19:30 Home Medications: Albuterol Sulfate [Proair Hfa] 8.5 gm IH TID PRN #1 hfa.aer.ad 11/23/17 Fluticasone/Salmeterol [Airduo Respiclick 113-14 Mcg] 1 each IH BID #1 aer.pow.ba 11/23/17 Metoprolol Tartrate [Lopressor*] 25 mg PO BID #60 tab 11/23/17 levoFLOXacin [Levaquin*] 500 mg PO DAILY #7 tab 11/23/17 predniSONE [Prednisone*] 20 mg PO SEECOM #15 tab 11/23/17 traMADol HCL [Ultram*] 50 mg PO TID PRN #20 tab 11/23/17 New Medications: Albuterol Sulfate [Proair Hfa] 8.5 gm IH TID PRN #1 hfa.aer.ad PRN Reason: Shortness Of Breath Fluticasone/Salmeterol [Airduo Respiclick 113-14 Mcg] 1 each IH BID #1 aer.pow.ba levoFLOXacin [Levaquin*] 500 mg PO DAILY #7 tab Metoprolol Tartrate [Lopressor*] 25 mg PO BID #60 tab predniSONE [Prednisone*] 20 mg PO SEECOM #15 tab traMADol HCL [Ultram*] 50 mg PO TID PRN #20 tab PRN Reason: Pain Mild Patient Discharge Instructions: 1. Patient will need a follow up with her PCP in 1 week to follow up this hospitalization. 2. Patient presented with shortness of breath. Patient found to have COPD exacerbation and right lower lobe pneumonia. CT scan showed no pulmonary embolism. Left lower lobe 2.2 x 1.5 cm mass with irregular margins was new from 2013 radiology comparison. Malignancy is likely. A 3.2 x 2.2 cm sub-carinal mass was also noted. The patient was given COPD treatment and treatment for pneumonia. Pulmonology was consulted to further assess CT scan findings. Pulmonology spoke with patient in detail concerning CT abnormalities. Due to the location of these lung masses, recommendation was for the patient to follow up with CV surgery as an outpatient to consider further evaluation and biopsy. This is likely not amenable to CT-guided biopsy due to patient's COPD history as per Radiology due to risk of complication. Patient has done well with treatment. Room-air saturations and saturations with exertion within normal range at discharge. At discharge she will continue with prednisone 20 mg 1 pill twice daily for 5 days then 1 pill once daily for 5 days. Patient will continue with her COPD medication including Airduo 1 puffs twice daily and Pro air 2 puffs 3 times a day as needed for shortness of breath. Recommendations for the patient follow up with pulmonology as an outpatient to further monitor and address. Patient will need a follow up with CV surgery at a higher level care center to further assess CT abnormalities. 3. Patient has right lower lobe pneumonia. At discharge she will continue with Levaquin 500 mg 1 pill daily for 7 days. Recommendation is to recheck x-ray in 2-4 weeks to monitor resolution. Patient can follow up with pulmonology to further evaluate. A limited supply of pain medication-tramadol 50 mg 1 pill 3 times a day as needed for pain will be provided. 4. Patient has hypertension. She will continue with medication metoprolol 25 mg 1 pill twice daily. Recommendations to maintain blood pressures less 150/80. Further adjustment can be done by her PCP. 5. Patient has chronic pancreatitis. This has remained stable. Patient may continue with Creon as directed. Patient may follow up with GI to further monitor. 6. Patient will need to continue with tobacco cessation Diet: AHA Activity: Fall precautions Time spent managing pt's care (in minutes): 55
== END 2017-11-23 15:19 | disposition home or self-care (01) | DRG 190 ==
LOC: ER 18:14 → ERHOLD 18:54 → 2ND 20:28 → ERHOLD 20:28 → 2ND 20:54
PROVIDERS: ADMIT Hospitalist; ATTEND Family Medicine
DX: J44.0 Chronic obstructive pulmonary disease with (acute) lower respiratory infection (principal); J18.9 Pneumonia, unspecified organism; K86.1 Other chronic pancreatitis; J44.1 Chronic obstructive pulmonary disease with (acute) exacerbation; R09.02 Hypoxemia; R91.8 Other nonspecific abnormal finding of lung field; I10 Essential (primary) hypertension; R59.1 Generalized enlarged lymph nodes; F17.210 Nicotine dependence, cigarettes, uncomplicated; Z88.0 Allergy status to penicillin
CPT/HCPCS: 36415; 71045; 71046; 71275; 80048; 80053; 80076; 81003; 81015; 82550; 82553; 83690; 83735; 83880; 84100; 84484; 85025; 85610; 85730; 87040; 87804; 93005; 93306; 94640; 96365; 96366; 96375; 99285; J0456; J0696; J1650; J2405; J2930; J3475; J7030; J7512; J7606; Q9967

== ENCOUNTER 2018-04-01 18:58 | Emergency (ER) | payer SELFPAY ==
--- NOTE | 2018-04-01 20:04 | ER ---
Nurse's Notes [facility] Name: Mildred Renner Age: 57 yrs Sex: Female : 1960 Arrival Date: 04/01/2018 Time: 19:04 Bed Waiting Private MD: Diagnosis: ED Course: 04/01 19:04 Patient arrived in ED. mr 20:02 Patient's name was called from ER lobby. No response. aj 20:03 Niels Bowers MD is Attending Physician. aj Administered Medications: No medications were administered Outcome: 20:02 Eloped from waiting room. aj 20:03 Patient left the ED. aj Signatures: Leslie Moise RN RN Oly Paul mr
== END 2018-04-01 20:03 | disposition left against medical advice (07) ==
LOC: ER 18:58
DX: Z53.21 Procedure and treatment not carried out due to patient leaving prior to being seen by health care provider (principal)